=== PATIENT | male | born 1945 | race Caucasian/White ===

== ENCOUNTER 2023-12-25 12:19 | Emergency (ER) | payer MEDICARE ==
[~2023-12-25] VITALS: Ht 175.2 cm; Wt 74.8 kg
[2023-12-25] MEDS ORDERED: Ketorolac Tromethamine 15 MG/ML VIAL IV PRN (12:50)
[2023-12-25] MEDS ORDERED: SODIUM CHLORIDE 0.9% 1,000 ML IV ONE (12:50)
[2023-12-25 13:06] LABS: BASO # 0.1 10*3/uL (0.0-0.1); BASO % 1.1 % (0.0-1.0); EOS # 0.1 10*3/uL (0.0-0.4); EOS % 2.2 % (1.0-4.0); HEMATOCRIT 44.3 % (42.0-52.0); LYMPH # 1.2 10*3/uL (1.3-4.4); LYMPH % 18.1 % (27.0-41.0); MEAN CELL VOLUME 90.4 fl (80.0-94.0); MEAN CORPUSCULAR HGB 29.8 pg (27.0-31.0); MEAN PLATELET VOLUME 9.9 fl (9.6-12.3); MONO # 0.4 10*3/uL (0.1-1.0); MONO % 6.5 % (3.0-9.0); NEUT # 4.7 10*3/uL (2.3-7.9); NEUT % 71.9 % (47.0-73.0); PLATELET COUNT AUTOMATED 161 10*3/uL (130-400); RED CELL DISTRI WIDTH 12.7 % (0-14.5); WHITE BLOOD COUNT 6.5 10*3/uL (4.8-10.8)
[2023-12-25 13:30] LABS: BILIRUBIN Negative (Negative); BLOOD 3+ (Negative); CLARITY Clear (Clear); COLOR Yellow (Yellow); GLUCOSE Negative (Negative); KETONE Trace (Negative); LEUKO ESTERASE Negative (Negative); NITRITE Negative (Negative); PH 5.5 (4.5-8.0); SPECIFIC GRAVITY 1.025 (1.001-1.030); UROBILINOGEN 0.2 E.U./dl (0.0-1.0)
[2023-12-25 13:31] LABS: ALKALINE PHOSPHATASE 117 U/L (46-116); BUN 20 mg/dl (9-23); CHLORIDE 110 mmol/L (98-107); LIPASE 26 U/L (12-53); POTASSIUM 3.7 mmol/L (3.4-5.1); SGPT/ALT 16 U/L (5-49); TOTAL PROTEIN 7.1 gm/dL (6.0-8.0)
[2023-12-25 13:38] LABS: RBC TNTC rbc/hpf (0-2)
[2023-12-25] MEDS ORDERED: MELOXICAM15 MG PO (14:40)
== END 2023-12-25 15:09 | disposition home or self-care (01) ==
LOC: ED 12:19
PROVIDERS: Internal Medicine
DX: N20.0 Calculus of kidney (principal); R11.2 Nausea with vomiting, unspecified; Z88.6 Allergy status to analgesic agent; Z88.5 Allergy status to narcotic agent